=== PATIENT | female | born 1990 | race Caucasian/White ===

== ENCOUNTER → 2019-12-09 | Outpatient (CLI) | payer BC | LOC: ZCOL.LAB 14:23 | DX: U07.1 COVID-19 (principal) ==

== ENCOUNTER → 2023-07-16 | Outpatient (CLI) | payer BC ==
[~2023-07-16] MED LIST: FLOMAX 0.40.4 MG/CAP PO; PERCOCET 325 MG1 TA2 PO; ZOFRAN ODT4 MG PO
== END ==
LOC: COL.RAD 08:50
DX: E04.1 Nontoxic single thyroid nodule (principal); E55.9 Vitamin D deficiency, unspecified

== ENCOUNTER → 2023-12-09 | Outpatient (CLI) | payer BC | LOC: COL.RAD 07:21 | DX: K76.89 Other specified diseases of liver (principal) ==